=== PATIENT | female | born 1945 | race Two or more races ===

== ENCOUNTER 2017-11-26 13:37 | Observation (INO) | payer MEDICARE, OTHER ==
[2017-11-26] MEDS: SOD CHLORIDE 0.9% 1,000 ML IV (14:34)
[2017-11-26] MEDS: SOD CHLORIDE 0.9% 0 ML (14:43)
[2017-11-26] MEDS: IOHEXOL 0 ML (14:44)
[2017-11-26 14:47] LABS: ADD MAN DIFF? NO
[2017-11-26] MEDS: MECLIZINE 12.5 MG TAB PO (14:47)
[2017-11-26] MEDS ORDERED: DEXTROSE 50% 50 ML SYRINGE (14:49)
[2017-11-26 14:53] LABS: WHITE BLOOD COUNT 12.2 10^3/ul (4.8-10.8)
[2017-11-26 14:53] LABS: BASOPHIL # 0.1 10^3/ul (0.0-0.1); BASOPHILS % 0.4 % (0.0-2.0); EOSINOPHILS # 0.1 10^3/ul (0.0-0.5); EOSINOPHILS % 0.7 % (0.0-7.0); HEMATOCRIT 35.7 % (37.0-47.0); HEMOGLOBIN 11.7 g/dl (12.0-16.0); LYMPHOCYTES # 1.2 10^3/ul (0.8-2.9); LYMPHOCYTES % 9.9 % (15.0-51.0); MEAN CORPUSCULAR HEMOGLOBIN 28.5 pg (29.0-33.0); MEAN CORPUSCULAR HGB CONC 32.8 g/dl (32.0-37.0); MEAN CORPUSCULAR VOLUME 87.1 fl (82.0-101.0); MONOCYTE # 0.9 10^3/ul (0.3-0.9); MONOCYTES % 7.3 % (0.0-11.0); NEUTROPHIL # 9.9 10^3/ul (1.6-7.5); NEUTROPHILS % 81.4 % (39.0-77.0); PLATELET COUNT 224 10^3/UL (140-415); RED CELL DISTRIBUTION WIDTH 14.4 % (11.5-14.5)
[2017-11-26] MEDS: DEXTROSE 50% 50 ML SYRINGE IV (14:53)
[2017-11-26 15:13] LABS: INR 1.09; PROTIME 14.2 Sec (11.9-14.9); PT RATIO 1.1
[2017-11-26 15:14] LABS: PARTIAL THROMBOPLASTIN TIME 33.7 Sec (25.0-35.0)
[2017-11-26 15:21] LABS: ANION GAP 16 (8-16); BLOOD UREA NITROGEN 27 mg/dl (7-20); CALCIUM 9.7 mg/dl (8.4-10.2); CARBON DIOXIDE 26 mmol/L (21-31); CHLORIDE 103 mmol/L (97-110); CREATININE 1.23 mg/dl (0.44-1.00); POTASSIUM 4.2 mmol/L (3.5-5.1); SODIUM 141 mmol/L (135-144)
[2017-11-26 15:27] LABS: GLUCOSE 45 mg/dl (70-220)
[2017-11-26 15:38] LABS: TROPONIN-I < 0.012 ng/ml (0.00-0.12)
[2017-11-26] MEDS ORDERED: HYDROCODONE/APAP (10/325) TAB PO (18:00)
[2017-11-26] MEDS: NON-FORMULARY/PATIENT OWN MED (Mirabegron (Myrbetriq) 50 MG) PO (18:00)
[2017-11-26] MEDS: PREGABALIN 75 MG CAP PO (20:37)
[2017-11-26] MEDS: MONTELUKAST 10 MG TAB PO (20:37)
[2017-11-26] MEDS: CYCLOBENZAPRINE 10 MG TAB PO (20:37)
[2017-11-26] MEDS: DEXTROSE 5%-0.45% NACL 1,000 ML IV (21:05)
[2017-11-26] MEDS ORDERED: GLUCOSE GEL 15 GRAM TUBE BUCCAL (21:30)
[2017-11-26] MEDS ORDERED: GLUCOSE GEL 15 GRAM TUBE PO (21:30)
[2017-11-26] MEDS ORDERED: DEXTROSE 50% 50 ML SYRINGE IV (21:30)
[2017-11-26] MEDS ORDERED: GLUCAGON 1 MG INJ IM (21:30)
[2017-11-27] MEDS: GLUCOSE GEL 15 GRAM TUBE PO (02:06)
[2017-11-27] MEDS: ACCU-CHEK XX (02:19)
[2017-11-27] MEDS: DEXTROSE 50% 50 ML SYRINGE IV (02:23)
[2017-11-27] MEDS: LEVOTHYROXINE 50 MCG TAB PO (05:50)
[2017-11-27 06:24] LABS: CREATINE KINASE 68 IU/L (23-200)
[2017-11-27 06:32] LABS: CK INDEX 1.3; CK-MB 0.85 ng/ml (0.0-2.4)
[2017-11-27 06:37] LABS: TROPONIN-I < 0.012 ng/ml (0.00-0.12)
[2017-11-27] MEDS: NON-FORMULARY/PATIENT OWN MED (Mirabegron (Myrbetriq) 50 MG) PO (09:00)
[2017-11-27] MEDS: NON-FORMULARY/PATIENT OWN MED (Fluticasone/Vilanterol (Breo Ellipta 200-25 Mcg INH) 1 PUFF INHALATION (09:00)
[2017-11-27 09:01] LABS: ADD UMIC YES; UR ASCORBIC ACID NEGATIVE (NEGATIVE); UR BACTERIA FEW /HPF (NONE SEEN); UR BILIRUBIN (Dip) NEGATIVE (NEGATIVE); UR BLOOD (Dip) NEGATIVE (NEGATIVE); UR CLARITY SLIGHTLY CLOUDY (CLEAR); UR COLOR YELLOW (YELLOW); UR GLUCOSE (Dip) 1+ mg/dL (NEGATIVE); UR KETONES (Dip) NEGATIVE (NEGATIVE); UR LEUKOCYTE ESTERASE (Dip) TRACE Leu/ul (NEGATIVE); UR NITRITE (Dip) POSITIVE (NEGATIVE); UR RBC 0 /HPF (0-5); UR SPECIFIC GRAVITY (Dip) 1.009 (1.003-1.030); UR TOTAL PROTEIN (Dip) NEGATIVE (NEGATIVE); UR UROBILINOGEN (Dip) NEGATIVE (NEGATIVE); UR WBC 30 /HPF (0-5)
[2017-11-27] MEDS: PREGABALIN 75 MG CAP PO (10:23)
[2017-11-27] MEDS: CYCLOBENZAPRINE 10 MG TAB PO ×2 (10:23→16:09)
[2017-11-27] MEDS: FLUTICASONE 0.05% 16 GM NAS SPRAY NASAL (10:23)
[2017-11-27] MEDS: CHOLECALCIFEROL 1,000 UNIT TAB PO (10:23)
[2017-11-27] MEDS: HYDROCHLOROTHIAZIDE 25 MG TAB PO (10:24)
[2017-11-27] MEDS: LOSARTAN 50 MG TAB PO (10:24)
[2017-11-27] MEDS: ALLOPURINOL 300 MG TAB PO (10:24)
[2017-11-27] MEDS: DEXTROSE 5%-0.45% NACL 1,000 ML IV (13:40)
[2017-11-27 14:39] LABS: CREATINE KINASE 56 IU/L (23-200)
[2017-11-27 14:53] LABS: CK INDEX 1.4; CK-MB 0.76 ng/ml (0.0-2.4)
[2017-11-27 14:54] LABS: TROPONIN-I < 0.012 ng/ml (0.00-0.12)
[2017-11-27 19:26] LABS: CREATINE KINASE 51 IU/L (23-200)
[2017-11-27 19:39] LABS: CK INDEX 1.3; CK-MB 0.65 ng/ml (0.0-2.4)
[2017-11-27 19:43] LABS: TROPONIN-I < 0.012 ng/ml (0.00-0.12)
== END 2017-11-27 18:55 | disposition home or self-care (01) ==
LOC: E/R 13:37 → MS4 16:15
PROVIDERS: Family Medicine
DX: E11.649 Type 2 diabetes mellitus with hypoglycemia without coma (principal); G89.4 Chronic pain syndrome; E11.42 Type 2 diabetes mellitus with diabetic polyneuropathy; E03.9 Hypothyroidism, unspecified; M10.9 Gout, unspecified; E78.5 Hyperlipidemia, unspecified; M19.90 Unspecified osteoarthritis, unspecified site; G70.00 Myasthenia gravis without (acute) exacerbation; M19.012 Primary osteoarthritis, left shoulder; M19.011 Primary osteoarthritis, right shoulder; J44.9 Chronic obstructive pulmonary disease, unspecified; G93.41 Metabolic encephalopathy; M81.0 Age-related osteoporosis without current pathological fracture; I95.9 Hypotension, unspecified; D63.8 Anemia in other chronic diseases classified elsewhere; E86.0 Dehydration; Z79.52 Long term (current) use of systemic steroids; Z85.819 Personal history of malignant neoplasm of unspecified site of lip, oral cavity, and pharynx; Z79.899 Other long term (current) drug therapy; Z79.84 Long term (current) use of oral hypoglycemic drugs
CPT/HCPCS: 36415; 70450; 74176; 80048; 81001; 82550; 82553; 82962; 84484; 85025; 85610; 85730; 87040; 87086; 93005; 96374; 99285-25; G0378